=== PATIENT | male | born 1975 | race Caucasian/White ===

== ENCOUNTER → 2022-08-02 14:11 | Outpatient (CLI) | payer BC, SELFPAY ==
--- NOTE | 2022-08-02 14:19 | US_ITS ---
FINAL REPORT CLINICAL HISTORY: NEOPLASM OF UNCERTAIN BEHAVIOR OF NECK FINDINGS: Limited sonographic images of the posterior neck were obtained. There is a 2.3 cm ovoid, hypoechoic nodule at the area of interest with a nonspecific appearance, may represent lipoma. IMPRESSION: Findings may represent a lipoma. Reviewed, Interpreted and Dictated by Lokesh Vanegas III, MD Transcribed by Aisha Campbell Authenticated and [facility]
== END ==
LOC: RAD 14:12
PROVIDERS: PCP Family Medicine; Visit Provider Family Medicine
DX: D48.7 Neoplasm of uncertain behavior of other specified sites (principal)
CPT/HCPCS: 76536

== ENCOUNTER 2022-12-22 16:49 | Emergency (ER) | payer BC, SELFPAY ==
[2022-12-22 17:00] VITALS: BP 141/93; PULSE 66; RESP 18; TEMP 37.2; O2SAT 98; BMI 35.4
--- NOTE | 2022-12-22 17:30 | EXP.UTC ---
Discharge Plan Disposition Patient Disposition: Home, Self-Care Condition: Good Prescriptions Prescriptions: New prednisone 5 mg tablets,dose pack See Rx Instructions .ROUTE .COMPLEX Qty: 21 0RF Rx Instructions: take as directed on package instructions No Action atorvastatin 40 mg tablet 40 mg PO DAILY levothyroxine 25 mcg tablet 25 mcg PO DAILY Label Comments: TAKE 1 TABLET BY MOUTH ONCE DAILY amlodipine 10 mg tablet 10 mg PO DAILY Label Comments: TAKE 1 TABLET BY MOUTH ONCE DAILY hydrochlorothiazide 12.5 mg capsule 12.5 mg PO DAILY Label Comments: TAKE 1 CAPSULE BY MOUTH ONCE DAILY montelukast 10 mg tablet 10 mg PO DAILY Label Comments: TAKE 1 TABLET BY MOUTH ONCE DAILY irbesartan 300 mg tablet 300 mg PO DAILY Label Comments: TAKE 1 TABLET BY MOUTH ONCE DAILY nebivolol 10 mg tablet 10 mg PO DAILY Label Comments: TAKE 1 TABLET BY MOUTH ONCE DAILY Referrals Follow up/Referrals: Can Loyola MD [Primary Care Provider] - See instructions Activity Restrictions/Add. Instructions Additional Instructions/Restrictions: Oatmeal baths may help with drying of the rash Calamine lotion may help to clear the rash Start oral steriods tomorrow Do not scratch Oral benadryl may help with itching Clinical Impressions Clinical Impression: Poison jose e Instructions Patient Instructions: Summertime Rashes: Poison Jose E, [place], and [place], Poisonous Plants: Jose E, [place], and [place]: Beware the Oils, DI for Poison Jose E Allergy Discharge ED Provider: Aury Madison [facility] [place] HPI General Stated complaint: rash right arm Mode of Arrival: Ambulatory Source of Information: Patient Limitations: No Limitations Time Seen by Provider: 12/22/22 17:30 Description of Symptoms (Recalled from Triage Doc. by RN): PATIENT C/O BLISTER-LIKE RASH TO RIGHT FOREARM X 3 DAYS, POSSIBLE POISON JOSE E/OAK HEENT Symptoms (Recalled from RN notes): No Resp Symptoms (Recalled from RN notes): No Skin Symptoms (Recalled from RN notes): Yes MS Symptoms (Recalled from RN notes): No Functional Status (Recalled from RN notes): WNL History of Present Illness Provider Complaint: Patient states that he has been having poison jose e on his right forearm x 3 days that has continued to spread States that he has had it before and has to come in to get a shot and some oral pills before it gets really bad and hard to control Related Data Home Medications Medication Instructions Recorded Confirmed amlodipine 10 mg tablet 10 mg PO DAILY Hypertension 12/22/22 12/22/22 atorvastatin 40 mg tablet 40 mg PO DAILY Cholesterol 12/22/22 12/22/22 hydrochlorothiazide 12.5 mg capsule 12.5 mg PO DAILY Hypertension 12/22/22 12/22/22 irbesartan 300 mg tablet 300 mg PO DAILY Hypertension 12/22/22 12/22/22 levothyroxine 25 mcg tablet 25 mcg PO DAILY Supplement 12/22/22 12/22/22 montelukast 10 mg tablet 10 mg PO DAILY Allergy symptoms 12/22/22 12/22/22 nebivolol 10 mg tablet 10 mg PO DAILY Hypertension 12/22/22 12/22/22 Previous Rx's Medication Instructions Recorded prednisone 5 mg tablets in a dose See Rx Instructions PO .COMPLEX 12/22/22 pack #21 tabs Allergies Allergy/AdvReac Type Severity Reaction Status Date / Time Penicillins Allergy Verified 12/22/22 17:14 Worker's Comp Is this a Worker's Comp case?: No [facility] Disclaimer: The information contained in this section may have been updated after the patient was seen, as this information can be updated by other users. Social History Smoking Status: Never smoker alcohol intake: never current occupational status: employed Travel in the last 8 weeks: None ROS Obtained: Yes All systems reviewed & no additional complaints except as documented and Yes Systems reviewed as appropriate & no additional complaints except as documented Constitutional Constitutional: Reports system reviewed and no additional complaints, ex
[2022-12-22 17:55] VITALS: BP 141/93; PULSE 66; RESP 18; TEMP 37.2; O2SAT 98
== END 2022-12-22 18:15 | disposition home or self-care (01) ==
PROVIDERS: Emergency Provider Nurse Practitioner; PCP Family Medicine
DX: L23.7 Allergic contact dermatitis due to plants, except food (principal); W60.XXXA Contact with nonvenomous plant thorns and spines and sharp leaves, initial encounter
CPT/HCPCS: 96372; 99204; 99212; G0463

== ENCOUNTER 2023-09-26 08:32 | Day surgery (SDC) | payer BC, SELFPAY ==
[2023-09-25 10:07] VITALS: BMI 27.7
[2023-09-26] MEDS: LACTATED RINGERS 1000ML 1,000 ML 25 ML IV (08:48)
[2023-09-26 08:49] VITALS: BP 156/90; PULSE 67; RESP 18; TEMP 36.8; O2SAT 96
--- NOTE | 2023-09-26 09:00 | HMH.SCOPE ---
Procedure: Date: 09/26/23 Patient Date of :: 1975 Procedure Performed:: Colonoscopy with polypectomy Indications:: Screening Performing Provider:: German Porras MD Referring Provider:: . Sedation:: Monitored anesthesia care Procedure:: After informed consent was obtained the patient was taken to the endoscopy suite. Sedation ensued after the patient was transferred to the left lateral decubitus position. Pulse, blood pressure, and oxygen saturation were monitored throughout the procedure. Digital rectal exam revealed no significant abnormality. The colonoscope was placed in position. The entire colon was evaluated. The colonoscope was carefully removed and the patient was transferred to recovery in stable condition. Please see findings and specimens below for detail. Findings:: Bowel preparation moderate Fairly profound spasticity/lack of relaxation Moderate tortuosity Polyp (see specimens) Specimens:: Complex lobulated sessile proximal right colon polyp (cold snare and cold biopsy forceps) Recommendations:: Timing of repeat colonoscopy is pending pathology will likely be between 1-2 years with extended bowel preparation secondary to moderate bowel preparation, spasticity/lack of relaxation, and nature of polyp. Complications:: No immediate Estimated blood obtained (mL): 1 Colonoscopy Component Colonoscopy Component Was a colonoscopy performed during today's procedure?: Yes Recommended follow up colonoscopy of at least 10 years?: No If no, follow up colonoscopy recommended in ___ years?: (See above) Reason for not recommending >/= 10 yr follow-up interval?: (See above)
--- NOTE | 2023-09-26 09:02 | EXP.ANES.CKL ---
[facility] Disclaimer: The information contained in this section may have been updated after the patient was seen, as this information can be updated by other users. Medical History Hypothyroid Sleep apnea Surgical History History of lateral meniscus repair of right knee Family History Other Family history of diabetes mellitus type II Social History Smoking Status: Never smoker alcohol intake: current substance use type: denies use current occupational status: employed Travel in the last 8 weeks: None caffeine: Yes [facility] Anesthesia Checklist Patient Identification Patient Identification: Arm Band and Verbal (Name & ) Structural Data Admitted From: Home Planned Operative Procedure/s: Colonoscopy Consent for Planned Operative Procedure(s) Verified: Yes NPO Status Verified Time NPO: 00:00 Additional verifications Anesthesia Reactions: No Airway Assessment Mallampati Score:: Class II C-Spine Mobility Assessed: Yes TMJ Mobility Assessed: Yes Dentition: Good Dentition Neurological Assessment Level of Consciousness: Awake Hx Seizures: No Numbness or tingling in extremities: No Anesthesia Plan Anesthesia Risk discussed: Yes Anesthesia Plan: Verified ASA Class: II Anesthesia Type: MAC
[2023-09-26 09:08] VITALS: O2SAT 96
[2023-09-26 09:40] VITALS: BP 97/68; PULSE 71; RESP 14; TEMP 36.3; O2SAT 91
[2023-09-26 09:50] VITALS: BP 119/80; PULSE 62; RESP 17; O2SAT 98
[2023-09-26 10:09] VITALS: BP 135/77; PULSE 64; RESP 17; O2SAT 99
== END 2023-09-26 10:15 | disposition home or self-care (01) ==
PROVIDERS: PCP Family Medicine; Visit Provider Surgery
PROC: 0DJD8ZZ Inspection of Lower Intestinal Tract, Via Natural or Artificial Opening Endoscopic (ICD-10-PCS; CPT 45380; principal; 2023-09-26 09:30)
DX: Z12.11 Encounter for screening for malignant neoplasm of colon (principal); K56.2 Volvulus; D12.2 Benign neoplasm of ascending colon
CPT/HCPCS: 45380; J2704

== ENCOUNTER 2023-10-04 09:00 | Outpatient (RCR) | payer BC, SELFPAY ==
--- NOTE | 2023-07-27 08:42 | HMH.PTOPEV ---
PT Outpatient Evaluation Rehab PT Outpatient Evaluation Start: 07/27/23 08:29 Freq: Status: Active Protocol: Document 07/27/23 08:29 JAQUELIN (Rec: 07/27/23 08:41 JAQUELIN [id number]) E-signed By Gopal Dover, PT Outpatient Therapy Subjective History Subjective History Pt reports insidious onset left achilles tendon pain and swelling for ~6 months. Pt reports localized pain to left achilles just proximal to insertion on calcaneus, and reports increased s/s with work related activity at [facility]--prolonged walking and standing. New diagnosis of cancer in past 12 No months? Chief Complaint Pain,Stiff,Swelling Symptom Type Ache,Sharp,Dull,Stabbing Symptoms Relieved By Rest/Positioning,Ice Symptoms Aggravated By Standing,Walking Prior Functional Limitations Standing,Walking Current Functional Limitations Standing,Walking,Stairs Symptom Description Constant but Variable Level of pain today (0-10) 4 Pain scale - at its best (0-10) 3 Pain scale - at its worst (0-10) 9 Ankle/Foot Eval Gait Observation General Gait Pattern Observation Antalgic Gait Assistive Device Ambulation Assistive Device None Palpation Tenderness left Ankle/Foot Palpation Findings Tenderness Ankle/Foot Palpation Overall Comment 3/4 achilles tendon ROM Ankle/Foot Dorsiflexion w/Knee Extended 0 Active Range Motion (degrees) Ankle/Foot Plantar Flexion Active Range 0-45 of Motion (degrees) Ankle/Foot Eversion Active Range of 0-19 Motion (degrees) Ankle/Foot Inversion Active Range of 0-30 Motion (degrees) MMT Ankle Dorsiflexion Strength Grade 5 Normal Ankle Plantarflexion Strength Grade 4- Good- Foot Eversion Strength Grade 4 Good Foot Inversion Strength Grade 4 Good Lower Extremity Functional Index Activities Today, do you or would you have any difficulty at all with: a.Any of your usual work, housework or Quite a bit of difficulty school activities b. Your usual hobbies, recreational or Quite a bit of difficulty sporting activities c. Getting into or out of the bath A little bit of difficulty d. Walking between rooms A little bit of difficulty e. Putting on your shoes or socks No difficulty f. Squatting A little bit of difficulty g. Lifting an object, like a bag of A little bit of difficulty groceries from the floor h. Performing light activities around A little bit of difficulty your home i. Performing heavy activities around Moderate difficulty your home j. Getting into or out of a car No difficulty k. Walking 2 blocks A little bit of difficulty l. Walking a mile Moderate difficulty m. Going up or down 10 stairs (about 1 A little bit of difficulty flight of stairs) n. Standing for 1 hour No difficulty o. Sitting for 1 hour No difficulty p. Running on even ground Quite a bit of difficulty q. Running on uneven ground Quite a bit of difficulty r. Making sharp turns while running fast Quite a bit of difficulty s. Hopping Quite a bit of difficulty t. Rolling over in bed No difficulty LEFI Score Lower Extremity Functional Index Score 51 Outpatient Therapy Assessment Impairments Problems/Impairmments Palpation Tenderness,Impaired Range of Motion,Impaired Strength,Impaired Gait Pattern ,Impaired Walking,Impaired Standing,Impaired Household Care,Impaired Stair Climbing, Impaired Work Activities, Subjective C/O Pain,Impaired Self Care/Self Management Prognosis Rehab Potential Good Clinical Impression Consistent with Diagnosis Yes Short Term Goals Number of Weeks 4 Decreased Palpation Tenderness Yes: 1-2/4 left achilles Increase Range of Motion Yes: 0-5 left ankle DF Increase Strength Yes: 4-4+/5 left ankle Increase Ability to Walk Yes: 30min Increase Ability to Stand Yes: 30min Improve Ability For Household Care Yes: 30MIN Improve LEFI Score Yes: 60-65 Decrease Subjective C/O Pain Yes: 3-4/10 W/ABOVE ACTIVITIES Patient to be Ind w/ HEP Yes [employer] Goals Number of Weeks 6-8 Decreased Palpation Tenderness Yes: 0-1/4 LEFT ACHILLES Increase Range of Motion Yes: WFL LEFT ANKLE DF 0-8-10 Increase Strength Yes: 5/5 LEFT ANKLE Improve Gait Pattern without Assistive Yes: WFL Device Increase Ability to Walk Yes: 60MIN Increase Ability to Stand Yes: 60MIN Improve Ability For Household Care Yes: 60MIN Improve Ability to Climb Stairs Yes: WFL Improve Tolerance to Work Activities Yes: WFL Improve LEFI Score Yes: 70+ Decrease Subjective C/O Pain Yes: 0-2/10 W/ABOVE ACTIVITIES Patient to be Ind w/ Advanced HEP Yes Outpatient Therapy Plan of Care Treatment Plan May Include Therapeutic Exercise Including Home Yes Exercise Program Manual Therapy Techniques Yes Neuromuscular Re-education Yes Therapeutic Activities to Return to Yes Previous Functional/Work Level Gait Training Yes ADL/Self Care Education Yes Dry Needling Yes Thermal Modalities Yes Electrical Stimulation Yes Ultrasound/Phonophoresis Yes Iontophoresis Yes Eval/Re-Eval Yes Frequency Times per week 2-3 Duration Number of Weeks 6-8 Addendums This patient is a candidate for social No or vocational rehab? Patient/Guardian verbally acknowledges Yes understanding of treatment program and consents to further treatment? Patient/Guardian verbally acknowledges Yes understanding of diagnosis, prognosis and goals for treatment? Eval Complexity PT Charges 78401 - Low Complexity Shoulder/Elbow Eval Shoulder Objective Measurements Elbow Objective Measurements PHYSICIAN CERTIFICATION: I certify the specified therapy services for Chad Saavedra are required, authorized, and reviewed every 30 days.
--- NOTE | 2023-08-28 09:22 | HMH.RHREAS ---
Rehab Reassessment Rehab OP Re-assessment Start: 07/27/23 08:29 Freq: Status: Active Protocol: Document 08/28/23 08:03 EFRAÍNMAMIE (Rec: 08/28/23 09:21 JAQUELIN [id number]) E-signed By Gopal Dover, PT Lower Extremity Functional Index Activities Today, do you or would you have any difficulty at all with: a.Any of your usual work, housework or No difficulty school activities b. Your usual hobbies, recreational or Moderate difficulty sporting activities c. Getting into or out of the bath No difficulty d. Walking between rooms No difficulty e. Putting on your shoes or socks No difficulty f. Squatting No difficulty g. Lifting an object, like a bag of No difficulty groceries from the floor h. Performing light activities around No difficulty your home i. Performing heavy activities around No difficulty your home j. Getting into or out of a car No difficulty k. Walking 2 blocks A little bit of difficulty l. Walking a mile A little bit of difficulty m. Going up or down 10 stairs (about 1 No difficulty flight of stairs) n. Standing for 1 hour No difficulty o. Sitting for 1 hour A little bit of difficulty p. Running on even ground Moderate difficulty q. Running on uneven ground Moderate difficulty r. Making sharp turns while running fast Moderate difficulty s. Hopping No difficulty t. Rolling over in bed No difficulty LEFI Score Lower Extremity Functional Index Score 69 Rehab Re-assessment Subjective Subjective Pt reports improved left achilles area pain @2/10 on VAS, and feels 50% better overall since I eval Objective Objective Notes AROM: ANKLE DF 0-8, PF 0-50, INV 0-30, EVR 0-20 MMT: LEFT ANKLE DF 5/5, PF 4+/ 5, INV 5/5, EVR 4+/5 TTP: LEFT ACHILLES TENDON 2-3/ 4 GAIT: WFL ON LEVEL TERRAIN LEF SCORE 69 VS 51 ON EVAL Assessment Progress Assessment Progressing as Expected Assessment Notes SIGNIFICANT IMPROVEMENTS IN AROM, STRENGTH, AND LEF SCORE Patient goals met STG'S 04/01 LTG'S 12/02 Goals Not Met LTG'S 02/01 Plan Plan Pt to continuw w/skilled P.T. to make further improvements in ROM, strength, and TTP to allow for optimal function Frequency of Therapy 1-2x/wk Duration of therapy 3-5wks Time and Billing Re-Eval Time 12 Re-Eval Billing Units 1 PHYSICIAN CERTIFICATION: I certify the specified therapy services for Chad Saavedra are required, authorized, and reviewed every 30 days.
--- NOTE | 2023-09-28 08:57 | HMH.RHREAS ---
Rehab Reassessment Rehab OP Re-assessment Start: 07/27/23 08:29 Freq: Status: Active Protocol: Document 09/28/23 08:14 EFRAÍNMAMIE (Rec: 09/28/23 08:57 JAQUELIN [id number]) E-signed By Gopal Dover, PT Lower Extremity Functional Index Activities Today, do you or would you have any difficulty at all with: a.Any of your usual work, housework or A little bit of difficulty school activities b. Your usual hobbies, recreational or A little bit of difficulty sporting activities c. Getting into or out of the bath No difficulty d. Walking between rooms No difficulty e. Putting on your shoes or socks No difficulty f. Squatting No difficulty g. Lifting an object, like a bag of No difficulty groceries from the floor h. Performing light activities around No difficulty your home i. Performing heavy activities around A little bit of difficulty your home j. Getting into or out of a car No difficulty k. Walking 2 blocks No difficulty l. Walking a mile A little bit of difficulty m. Going up or down 10 stairs (about 1 No difficulty flight of stairs) n. Standing for 1 hour No difficulty o. Sitting for 1 hour No difficulty p. Running on even ground A little bit of difficulty q. Running on uneven ground A little bit of difficulty r. Making sharp turns while running fast A little bit of difficulty s. Hopping No difficulty t. Rolling over in bed No difficulty LEFI Score Lower Extremity Functional Index Score 73 Rehab Re-assessment Subjective Subjective Pt reports plateau of left heel/achilles pain and functional improvement over the last ~couple weeks. 'It's definitely miles better since we started, but it's not changed much in a while.' Objective Objective Notes AROM: ANKLE DF 0-10, PF 0-50, INV 0-30, EVR 0-25 MMT: LEFT ANKLE DF 5/5, PF 4+/ 5, INV 5/5, EVR 4+/5 TTP: LEFT ACHILLES TENDON 1-2/ 4 GAIT: WFL ON LEVEL TERRAIN LEF SCORE 73 VS 51 ON EVAL Assessment Progress Assessment Progressing as Expected Assessment Notes improved TTP, ROM, and LEF Patient goals met STG'S 04/01 LTG'S 04/04 Goals Not Met LTG'S 10/02 Plan Plan Pt to continuw w/skilled P.T. to make further improvements in ROM, strength, and TTP to allow for optimal function Frequency of Therapy 1-2X/WK Duration of therapy 2-4WKS Time and Billing Re-Eval Time 11 Re-Eval Billing Units 1 PHYSICIAN CERTIFICATION: I certify the specified therapy services for Chad Saavedra are required, authorized, and reviewed every 30 days.
== END 2023-10-04 10:00 | disposition home or self-care (01) ==
LOC: PT 09:00
PROVIDERS: Visit Provider Family Medicine
DX: M76.62 Achilles tendinitis, left leg (principal)
CPT/HCPCS: 20560; 97010; 97014; 97035; 97110; 97140; 97163; 97164; G0283

== ENCOUNTER 2023-10-08 08:24 | Emergency (ER) | payer BC, SELFPAY ==
[2023-10-08 08:40] VITALS: BP 167/91; PULSE 70; RESP 18; TEMP 36.6; O2SAT 98; BMI 36.2
[2023-10-08 08:47] LABS: Apearance,Urine Cloudy (Clear); Color,Urine Orange (Yellow); Glucose,Urine (UA) 100 (Negative); Ketones,Urine Negative (Negative); Protein,Urine Trace (Negative); Specific Gravity, Urine 1.015 (1.005-1.030)
[2023-10-08 08:48] LABS: Bilirubin,Urine Negative (Negative); Blood, Urine Trace (Negative); UTC Leukocyte Esterase,Urine Negative (Negative); UTC Nitrate,Urine Positive (Negative); Urobilinogen,Urine 1 EU/dl (0.2)
--- NOTE | 2023-10-08 08:52 | ED_ITS ---
Discharge Plan Disposition Patient Disposition: Home, Self-Care Condition: Good Prescriptions Prescriptions: New ciprofloxacin HCl [Cipro] 500 mg tablet 500 mg PO BID Qty: 20 0RF No Action atorvastatin 40 mg tablet 40 mg PO DAILY levothyroxine 25 mcg tablet 25 mcg PO DAILY Patient Comments: TAKE 1 TABLET BY MOUTH ONCE DAILY amlodipine 10 mg tablet 10 mg PO DAILY Patient Comments: TAKE 1 TABLET BY MOUTH ONCE DAILY hydrochlorothiazide 12.5 mg capsule 12.5 mg PO DAILY Patient Comments: TAKE 1 CAPSULE BY MOUTH ONCE DAILY montelukast 10 mg tablet 10 mg PO DAILY Patient Comments: TAKE 1 TABLET BY MOUTH ONCE DAILY irbesartan 300 mg tablet 300 mg PO DAILY Patient Comments: TAKE 1 TABLET BY MOUTH ONCE DAILY nebivolol 10 mg tablet 10 mg PO DAILY Patient Comments: TAKE 1 TABLET BY MOUTH ONCE DAILY Referrals Follow up/Referrals: Can Loyola MD [Primary Care Provider] - See instructions Activity Restrictions/Add. Instructions Additional Instructions/Restrictions: *Increase fluids. Water not Soda or Tea *Start antibiotic immediately and be sure to take as ordered for the FULL length of time although you should start to see improvement over the next 48 hours You was prescribed Cipro, Cipro may cause pain in your joints and tendons on some people if you experience pain in your joints follow up with your Family Doctor immediately *Be SURE to follow up anytime for new or worsening symptoms with your family doctor. AND in 48 hours for urine culture results with your family doctor, if you do not have a doctor then you may call back to the [facility] for urine culture results and further treatment. We do recommend that you choose and establish care with a Primary Care Physician. ?AND follow up with them ?in 10-14 days to repeat UA to ensure infection is resolved and blood no longer present *Be sure to let your PCP know that we sent urine cultures from the [facility] so they can follow up to ensure that you area the on the correct antibiotic Call your doctor office and make appointment for 48 hours (2 days from today) ?to follow up and get the results of your urine culture and further treatment Clinical Impressions Clinical Impression: UTI (urinary tract infection) Instructions Patient Instructions: DI for Urinary Tract Infection (UTI), Urinary Tract Infection, Ciprofloxacin Discharge ED Provider: [place]ury [place] [facility] [place] Stated complaint: lower abd pain Time Seen by Provider: 10/08/23 08:53 History of Present Illness Provider Complaint: Patient states that he has been having pressure like feeling across his lower abdomen and feeling like he has been having urgency and frequency States that he noticed his urine is dark in color Denies burning Denies fever, chills or body aches Related Data Home Medications Medication Instructions Recorded Confirmed amlodipine 10 mg tablet 10 mg PO DAILY Hypertension 12/22/22 10/08/23 atorvastatin 40 mg tablet 40 mg PO DAILY Cholesterol 12/22/22 10/08/23 hydrochlorothiazide 12.5 mg capsule 12.5 mg PO DAILY Hypertension 12/22/22 10/08/23 irbesartan 300 mg tablet 300 mg PO DAILY Hypertension 12/22/22 10/08/23 levothyroxine 25 mcg tablet 25 mcg PO DAILY Supplement 12/22/22 10/08/23 montelukast 10 mg tablet 10 mg PO DAILY Allergy symptoms 12/22/22 10/08/23 nebivolol 10 mg tablet 10 mg PO DAILY Hypertension 12/22/22 10/08/23 Previous Rx's Medication Instructions Recorded ciprofloxacin HCl 500 mg tablet 500 mg PO BID #20 tabs 10/08/23 (Cipro) Allergies Allergy/AdvReac Type Severity Reaction Status Date / Time Penicillins Allergy Verified 09/26/23 08:46 [facility] Disclaimer: The information contained in this section may have been updated after the patient was seen, as this information can be updated by other users. Medical History Hypothyroid Sleep apnea Surgical History History of lateral meniscus repair of right knee Family History Other Family history of diabetes mellitus type II Social History (Updated 09/26/23 @ 09:03 by Peggy Obando CRNA) Smoking Status: Never smoker alcohol intake: current substance use type: denies use current occupational status: employed Travel in the last 8 weeks: None caffeine: Yes ROS Obtained: Yes All systems reviewed & no additional complaints except as documented and Yes Systems reviewed as appropriate & no additional complaints except as documented Constitutional Constitutional: Reports system reviewed and no additional complaints, except as documented, Reports as per HPI, Denies body ache, Denies chills and Denies fever(s) ENT Ears, Nose, Mouth, and Throat: Reports system reviewed and no additional complaints, except as documented and Reports as per HPI Cardiovascular Cardiovascular: Reports system reviewed and no additional complaints, except as documented and Reports as per HPI Respiratory Respiratory: Reports system reviewed and no additional complaints, except as documented and Reports as per HPI Gastrointestinal Gastrointestingal: Reports system reviewed and no additional complaints, except as documented and as per HPI Genitourinary Male Genitourinary: Reports system reviewed and no additional complaints, except as documented, Reports as per HPI, Reports urinary frequency, Reports urinary urgency and Reports other (pressure like discomfort in his lower abdomen) Physical Exam General General appearance: alert and in no apparent distress ENT ENT exam: Present mucous membranes moist Respiratory Respiratory exam: Present normal lung sounds bilaterally; Absent respiratory distress or wheezes Cardiovascular Cardiovascular exam: Present regular rate, normal rhythm and normal heart sounds Abdominal Exam Abdominal exam: Present soft and normal bowel sounds; Absent distention, tenderness, guarding or rebound Neurological Exam Neurological exam: Present alert, oriented X3 and normal gait Medical Decision Making Neymar Inquiry Pt receiving controlled substance: No Neymar was queried for this patient: No Lab Data Lab results reviewed: Yes I reviewed the patient's lab results. Lab Results 10/08/23 08:40: Urine Color [place], Urine Appearance Cloudy, Urine pH 6.0, Ur Specific [place] 1.015, Urine Protein Trace, Urine Glucose (UA) 100, Urine Ketones Negative, Urine Blood Trace, Urine Nitrate Positive A, Urine Bilirubin Negative, Urine Urobilinogen 1, Ur Leukocyte Esterase Negative Orders (Tests/Meds): ORDERS Category Date Time Status Urine Culture Stat Micro 10/08/23 08:46 Ordered
[2023-10-08 09:08] VITALS: BP 167/91; PULSE 70; RESP 18; TEMP 36.6; O2SAT 98
== END 2023-10-08 09:10 | disposition home or self-care (01) ==
PROVIDERS: Emergency Provider Nurse Practitioner; PCP Family Medicine
DX: N39.0 Urinary tract infection, site not specified (principal); R10.30 Lower abdominal pain, unspecified; E03.9 Hypothyroidism, unspecified; G47.30 Sleep apnea, unspecified
CPT/HCPCS: 81003; 87086; 99212; 99214; G0463

== ENCOUNTER 2023-12-06 15:13 | Emergency (ER) | payer BC, SELFPAY ==
[2023-12-06 16:10] VITALS: BP 182/114; PULSE 80; RESP 19; TEMP 36.8; O2SAT 97; BMI 34.9
[2023-12-06 16:22] LABS: Apearance,Urine Clear (Clear); Bilirubin,Urine Negative (Negative); Blood, Urine Trace (Negative); Color,Urine Yellow (Yellow); Glucose,Urine (UA) Negative (Negative); Ketones,Urine Negative (Negative); PH,Urine 6.5 (5.0-8.5); Protein,Urine Negative (Negative); UTC Leukocyte Esterase,Urine Negative (Negative); UTC Nitrate,Urine Negative (Negative); Urobilinogen,Urine 0.2 EU/dl (0.2)
--- NOTE | 2023-12-06 16:27 | ED_ITS ---
Discharge Plan Disposition Patient Disposition: Home, Self-Care Condition: Good Prescriptions Prescriptions: New nitrofurantoin monohyd/m-cryst [Macrobid] 100 mg capsule 100 mg PO Q12H 5 Days Qty: 10 0RF Rx Instructions: must administer with a meal/food phenazopyridine [Pyridium] 200 mg tablet 200 mg PO Q8H 2 Days Qty: 6 0RF No Action atorvastatin 40 mg tablet 40 mg PO DAILY levothyroxine 25 mcg tablet 25 mcg PO DAILY Patient Comments: TAKE 1 TABLET BY MOUTH ONCE DAILY amlodipine 10 mg tablet 10 mg PO DAILY Patient Comments: TAKE 1 TABLET BY MOUTH ONCE DAILY hydrochlorothiazide 12.5 mg capsule 12.5 mg PO DAILY Patient Comments: TAKE 1 CAPSULE BY MOUTH ONCE DAILY montelukast 10 mg tablet 10 mg PO DAILY Patient Comments: TAKE 1 TABLET BY MOUTH ONCE DAILY nebivolol 10 mg tablet 10 mg PO DAILY Patient Comments: TAKE 1 TABLET BY MOUTH ONCE DAILY terbinafine HCl 250 mg tablet 250 mg PO DAILY Patient Comments: TAKE 1 TABLET BY MOUTH ONCE DAILY FOR 84 DAYS irbesartan 300 mg tablet 300 mg PO DAILY Patient Comments: TAKE 1 TABLET BY MOUTH ONCE DAILY Referrals Follow up/Referrals: Can Loyola MD [Primary Care Provider] - See instructions Jan Palma MD [Referring] - See instructions (call office for appointment) Activity Restrictions/Add. Instructions Additional Instructions/Restrictions: Increase fluids. Water not Soda or Tea *Start antibiotic immediately and be sure to take as ordered for the FULL length of time although you should start to see improvement over the next 48 hours *Pyridium as needed Remember this medication will turn your urine . This is normal but it will stain what ever it gets on *You should not use Pyridium for more than 48 hours. If so , follow up with your primary physician to review urine culture and ensure that antibiotic is adequate for infection *Be SURE to follow up anytime for new or worsening symptoms with your family doctor. AND in 48 hours for urine culture results with your family doctor, if you do not have a doctor then you may call back to the [facility] for urine culture results and further treatment. We do recommend that you choose and establish care with a Primary Care Physician. ?AND follow up with them ?in 10-14 days to repeat UA to ensure infection is resolved and blood no longer present *Be sure to let your PCP know that we sent urine cultures from the [facility] so they can follow up to ensure that you area the on the correct antibiotic Call your doctor office and make appointment for 48 hours (2 days from today) ?to follow up and get the results of your urine culture and further treatment Clinical Impressions Clinical Impression: UTI (urinary tract infection) Instructions Patient Instructions: Nitrofurantoin, Phenazopyridine Discharge ED Provider: Aury Madison [facility] [place] HPI General Stated complaint: abdominal discomfort, poss.UTI Mode of Arrival: Ambulatory Source of Information: Patient Limitations: No Limitations Time Seen by Provider: 12/06/23 16:27 Description of Symptoms (Recalled from Triage Doc. by RN): PATIENT C/O DISCOMFORT WITH URINATION AND TENDERNESS AND LOWER ABDOMEN X 1.5 WEEKS HEENT Symptoms (Recalled from RN notes): No Resp Symptoms (Recalled from RN notes): No Skin Symptoms (Recalled from RN notes): No MS Symptoms (Recalled from RN notes): No Functional Status (Recalled from RN notes): WNL History of Present Illness Provider Complaint: Patient states that for the last couple weeks he has been having burning with urination and feeling of pressure in his lower abdomen like he has to go States feels like it did when he had a UTI a few months ago Denies fever, denies chills, denies penile discharge and denies pain in testicles Related Data Home Medications Medication Instructions Recorded Confirmed amlodipine 10 mg tablet 10 mg PO DAILY Hypertension 12/22/22 12/06/23 atorvastatin 40 mg tablet 40 mg PO DAILY Cholesterol 12/22/22 12/06/23 hydrochlorothiazide 12.5 mg capsule 12.5 mg PO DAILY Hypertension 12/22/22 12/06/23 levothyroxine 25 mcg tablet 25 mcg PO DAILY Supplement 12/22/22 12/06/23 montelukast 10 mg tablet 10 mg PO DAILY Allergy symptoms 12/22/22 12/06/23 nebivolol 10 mg tablet 10 mg PO DAILY Hypertension 12/22/22 12/06/23 irbesartan 300 mg tablet 300 mg PO DAILY 12/06/23 12/06/23 terbinafine HCl 250 mg tablet 250 mg PO DAILY 12/06/23 12/06/23 Previous Rx's Medication Instructions Recorded nitrofurantoin 100 mg PO Q12H 5 days #10 caps 12/06/23 monohydrate/macrocrystals 100 mg capsule (Macrobid) phenazopyridine 200 mg tablet 200 mg PO Q8H pain 2 days #6 tabs 12/06/23 (Pyridium) Allergies Allergy/AdvReac Type Severity Reaction Status Date / Time Penicillins Allergy Verified 09/26/23 08:46 Worker's Comp Is this a Worker's Comp case?: No [facility] Disclaimer: The information contained in this section may have been updated after the patient was seen, as this information can be updated by other users. Medical History Hypothyroid Sleep apnea Surgical History History of lateral meniscus repair of right knee Family History Other Family history of diabetes mellitus type II Social History (Updated 09/26/23 @ 09:03 by Peggy Obando CRNA) Smoking Status: Never smoker alcohol intake: current substance use type: denies use current occupational status: employed Travel in the last 8 weeks: None caffeine: Yes ROS Obtained: Yes All systems reviewed & no additional complaints except as documented and Yes Systems reviewed as appropriate & no additional complaints except as documented Constitutional Constitutional: Reports system reviewed and no additional complaints, except as documented and Reports as per HPI ENT Ears, Nose, Mouth, and Throat: Reports system reviewed and no additional complaints, except as documented and Reports as per HPI Cardiovascular Cardiovascular: Reports system reviewed and no additional complaints, except as documented and Reports as per HPI Respiratory Respiratory: Reports system reviewed and no additional complaints, except as documented and Reports as per HPI Gastrointestinal Gastrointestingal: Reports system reviewed and no additional complaints, except as documented and as per HPI; Denies abdominal pain Genitourinary Male Genitourinary: Reports system reviewed and no additional complaints, except as documented, Reports as per HPI, Reports urinary frequency, Reports urinary urgency and Reports other (burning with urination and pressure ) Integumentary/Breasts Skin/Breast: Reports system reviewed and no additional complaints, except as documented and Reports as per HPI Neurologic Neurologic: Reports system reviewed and no additional complaints, except as documented Physical Exam General General appearance: alert and in no apparent distress Respiratory Respiratory exam: Present normal lung sounds bilaterally; Absent respiratory distress or wheezes Cardiovascular Cardiovascular exam: Present regular rate, normal rhythm and normal heart sounds Abdominal Exam Abdominal exam: Present soft and normal bowel sounds; Absent distention or tenderness Neurological Exam Neurological exam: Present alert, oriented X3 and normal gait Medical Decision Making Neymar Inquiry Pt receiving controlled substance: No Neymar was queried for this patient: No Vital Signs: 12/06/23 16:10 Temperature 98.2 F Temperature Source Oral Pulse Rate [Left Brachial] 80 Respiratory Rate 19 Blood Pressure [Left Arm] 182/114 H Blood Pressure Mean [Left Arm] 136 Blood Pressure Source [Left Arm] Automatic Cuff Blood Pressure Position [Left Arm] Sitting 02 Sat by Pulse Oximetry 97 Oxygen Delivery Method Room Air Lab Data Lab results reviewed: Yes I reviewed the patient's lab results. Lab Results 12/06/23 16:18: Urine Color Yellow, Urine Appearance Clear, Urine pH 6.5, Ur Specific [place] 1.020, Urine Protein Negative, Urine Glucose (UA) Negative, Urine Ketones Negative, Urine Blood Trace, Urine Nitrate Negative, Urine Bilirubin Negative, Urine Urobilinogen 0.2, Ur Leukocyte Esterase Negative
[2023-12-06 16:46] VITALS: BP 177/104; PULSE 80; RESP 19; TEMP 36.8; O2SAT 97
== END 2023-12-06 16:55 | disposition home or self-care (01) ==
PROVIDERS: Emergency Provider Nurse Practitioner; PCP Family Medicine
DX: N39.0 Urinary tract infection, site not specified (principal); R10.819 Abdominal tenderness, unspecified site; R30.0 Dysuria
CPT/HCPCS: 81003; 87086; 99212; 99214; G0463